=== PATIENT | male | born 1975 | race Caucasian/White ===

== ENCOUNTER 2018-01-02 22:16 | Emergency (ER) | payer MEDICAID, OTHER ==
[2018-01-02] MEDS: KETOROLAC 60 MG INJ IM (23:12)
[2018-01-02] MEDS: DEXAMETHASONE 4 MG/ML 5 ML INJ IM (23:22)
[2018-01-02] MEDS ORDERED: DEXAMETHASONE 10 MG/ML 1 ML INJ IM (23:30)
== END 2018-01-02 23:54 | disposition home or self-care (01) ==
LOC: FTE 22:16
DX: M54.41 Lumbago with sciatica, right side (principal)
CPT/HCPCS: 96372; 99284-25